=== PATIENT | female | born 1935 | race Two or more races ===

== ENCOUNTER 2020-07-18 07:28 | Day surgery (SDC) | payer OTHER | END 2020-07-18 12:35 | disposition home or self-care (01) | LOC: AMB-ENDOS 07:28 | PROVIDERS: ATTEND Surgery | DX: K62.89 Other specified diseases of anus and rectum (principal); Z20.822 Contact with and (suspected) exposure to COVID-19 ==

== ENCOUNTER 2020-09-25 11:30 | Inpatient (IN) | payer OTHER ==
[~2020-09-25] VITALS: Ht 154.9 cm; Wt 57.2 kg
[2020-09-25] MEDS ORDERED: SYNTHROID75 MCG PO (13:54)
[2020-09-25] MEDS ORDERED: LOTREL 5-10 MG1 CAP PO (13:54)
[2020-09-25] MEDS ORDERED: GLIMEPIRIDE2 MG (13:54)
[2020-09-25] MEDS ORDERED: ADULT LOW DOSE81 M1 PO (13:55)
[2020-09-25] MEDS ORDERED: B12 ACTIVE1000 MCG PO (13:55)
[2020-09-25] MEDS ORDERED: PROTONIX20 MG PO (13:55)
[2020-09-25] MEDS ORDERED: LIPITOR20 MG PO (13:55)
[2020-10-08] MEDS ORDERED: METRONIDAZOLE500 MG PO (09:03)
[2020-10-08] MEDS ORDERED: INTESTINEX680 M1 PO (09:03)
[2020-10-08] MEDS ORDERED: LEVOFLOXACIN500 MG PO (09:03)
== END 2020-10-08 16:55 | disposition home or self-care (01) | DRG 330 ==
LOC: O/R 09-30 09:59 → SURG 09-30 11:30 → SURH 09-30 19:39
PROVIDERS: ADMIT Surgery; ATTEND Surgery
PROC: 0DBN4ZZ Excision of Sigmoid Colon, Percutaneous Endoscopic Approach (ICD-10-PCS; 2020-09-30)
PROC: 07BC4ZX Excision of Pelvis Lymphatic, Percutaneous Endoscopic Approach, Diagnostic (ICD-10-PCS; 2020-09-30)
PROC: 0DJD8ZZ Inspection of Lower Intestinal Tract, Via Natural or Artificial Opening Endoscopic (ICD-10-PCS; 2020-09-30)
PROC: 0DTP4ZZ Resection of Rectum, Percutaneous Endoscopic Approach (ICD-10-PCS; principal; 2020-09-30 19:30)
DX: K57.32 Diverticulitis of large intestine without perforation or abscess without bleeding (principal); K56.7 Ileus, unspecified; I11.9 Hypertensive heart disease without heart failure; E11.9 Type 2 diabetes mellitus without complications; Z20.822 Contact with and (suspected) exposure to COVID-19